=== PATIENT | female | born 1935 | race Caucasian/White ===

== ENCOUNTER → 2017-03-02 | Outpatient (CLI) | payer MEDICARE, BC ==
[~2017-03-02] MED LIST: ADVAIR 250-501 EACH INH; ASPIRIN EC81 MG PO; CALAN SR GENER240 MG PO; COMBIVENT RESPIM4 GM INH; CRESTOR5 MG PO; DIOVAN160 MG PO; EFFEXOR XR75 MG PO; LASIX40 M1 PO; OXYGEN M-15 INH; SPIRONOLACTONE25 MG PO; TYLENOL325 MG PO; ZYLOPRIM300 MG PO
== END | disposition disaster alternative care site (69) ==
LOC: LGSMG 16:02
DX: J44.9 Chronic obstructive pulmonary disease, unspecified (principal); J30.9 Allergic rhinitis, unspecified; R06.02 Shortness of breath